=== PATIENT | female | born 1940 | race Caucasian/White ===

== ENCOUNTER 2017-08-21 06:00 | Day surgery (SDC) | payer OTHER | END 2017-08-21 12:10 | disposition home or self-care (01) | LOC: AMB-ENDOS 06:00 | DX: D12.0 Benign neoplasm of cecum (principal); D12.2 Benign neoplasm of ascending colon; K57.32 Diverticulitis of large intestine without perforation or abscess without bleeding; K64.8 Other hemorrhoids ==